=== PATIENT | male | born 1955 | race Caucasian/White ===

== ENCOUNTER → 2016-11-06 | Outpatient (CLI) | payer OTHER, MEDICARE | END | disposition disaster alternative care site (69) | LOC: GAMB 09:53 | DX: I46.9 Cardiac arrest, cause unspecified (principal); E11.9 Type 2 diabetes mellitus without complications; L53.9 Erythematous condition, unspecified; M79.89 Other specified soft tissue disorders; R05 Cough; R53.1 Weakness; Z72.0 Tobacco use; Z88.1 Allergy status to other antibiotic agents | CPT/HCPCS: A0422; A0425; A0433; J0171; J0461; J7030 ==